=== PATIENT | male | born 1955 | race Two or more races ===

== ENCOUNTER 2020-05-13 03:17 | Inpatient (IN) | payer OTHER ==
[~2020-05-13] VITALS: Ht 167.6 cm; Wt 81.6 kg
[2020-05-13] MEDS ORDERED: ADVIL200 M1 (03:28)
[2020-05-13] MEDS ORDERED: NEURONTIN300 MG (03:28)
[2020-05-16] MEDS ORDERED: AMOX1TAB5 PO (10:08)
[2020-05-16] MEDS ORDERED: PROTONIX40 MG PO (10:09)
[2020-05-16] MEDS ORDERED: ULTRACET PO (10:10)
== END 2020-05-16 10:29 | disposition home or self-care (01) | DRG 419 ==
LOC: ER 03:17 → SURH 14:23 → SEC-K 14:23 → SURH 05-14 11:13
PROVIDERS: ADMIT Surgery; ATTEND Surgery
PROC: BW40ZZZ Ultrasonography of Abdomen (ICD-10-PCS; 2020-05-13)
PROC: BF13YZZ Fluoroscopy of Gallbladder and Bile Ducts using Other Contrast (ICD-10-PCS; 2020-05-15)
PROC: 0FT44ZZ Resection of Gallbladder, Percutaneous Endoscopic Approach (ICD-10-PCS; principal; 2020-05-15 11:15)
DX: K80.00 Calculus of gallbladder with acute cholecystitis without obstruction (principal); K82.8 Other specified diseases of gallbladder; K66.0 Peritoneal adhesions (postprocedural) (postinfection); I10 Essential (primary) hypertension; M79.7 Fibromyalgia; Z20.828 Contact with and (suspected) exposure to other viral communicable diseases

== ENCOUNTER 2023-08-30 20:58 | Emergency (ER) | payer OTHER ==
[~2023-08-30] VITALS: Ht 167.6 cm; Wt 81.6 kg
[~2023-08-30 20:58] MED LIST: ADVIL200 M1; AMOX1TAB5 PO; NEURONTIN300 MG; PROTONIX40 MG PO; ULTRACET PO
[2023-08-31 00:40] LABS: HEMOGLOBIN 15.8 g/dL (13-16.00); MEAN CELL VOLUME 85.6 fL (80.0-100.00); MEAN CORPUSCULAR HEMOGLOBIN 29.5 pg (27.00-32.0); MEAN CORPUSCULAR HGB CONC 34.4 g/dl (32.0-36.0); PLATELET COUNT 302 K/uL (150-450); RED BLOOD COUNT 5.37 M/uL (4.00-6.00); RED CELL DISTRIBUTION WIDTH 13.6 % (11.5-14.5)
[2023-08-31 01:01] LABS: ALBUMIN 4.3 gm/dL (3.4-5.0); BILIRUBIN TOTAL 0.4 mg/dL (0.3-1.2); CALCIUM 9.9 mg/dL (8.5-10.1); CREATININE SERUM 1.08 mg/dL (0.70-1.30); GFR 67.99; GLOBULINA 3.8 G/DL (2.4-3.5); POTASSIUM 3.47 mEq/L (3.5-5.1); TOTAL PROTEIN 8.1 gm/dL (6.4-8.2)
[2023-08-31 01:13] LABS: ABG PH 7.434 (7.35-7.45); ABG PO2 70.5 mmHg (80-100); ABG pCO2 41.8 mmHg (35-45); BASE EXCESS 2.8 mmol/l; BICARBONATE 27.4 mmol/l (23-25); SaO2 94.6 %; Tco2 28.7 mmol/l; allen test SATISFACTORY; puncture site RADIAL RIGHT
[2023-08-31 01:14] LABS: o2 21 %
[2023-08-31] MEDS ORDERED: SINGULAIR10 MG PO (03:07)
[2023-08-31] MEDS ORDERED: SYMBICORT 16010.2 GM IH (03:07)
[2023-08-31] MEDS ORDERED: ZYNCOF 20-400120 ML PO (03:07)
[2023-08-31] MEDS ORDERED: ALBUTEROL2.5 MG/3 M IH (03:07)
== END 2023-08-31 03:22 ==
LOC: ER 20:59
PROVIDERS: Emergency Medicine
DX: B34.9 Viral infection, unspecified (principal); J45.909 Unspecified asthma, uncomplicated; I10 Essential (primary) hypertension; Z20.822 Contact with and (suspected) exposure to COVID-19
CPT/HCPCS: 36415; 71046; 82803; 94640; 99284; J2930